=== PATIENT | female | born 1975 | race Caucasian/White ===

== ENCOUNTER → 2018-01-24 | Outpatient (CLI) | payer BC, OTHER ==
[~2018-01-24] MED LIST: ATACAND32 MG PO; BACTRIM DS TAB1 EACH PO; BYSTOLIC10 MG PO; DIFLUCAN150 MG PO; FISH OIL 1,001000 M2 PO; HYDROCODON-ACE1 EAC7 PO; MECLIZINE 25 MG25 M1 PO; MULTIVITAMINS1 EAC7 PO; NORVASC 5 MG TAB5 MG PO; NORVASC10 MG PO; ROBAXIN500 MG PO; VALIUM5 MG PO; VITAMIN D1000 UNI1 PO; ZOFRAN ODT4 MG PO
== END ==
LOC: RAD 14:01
DX: Z12.31 Encounter for screening mammogram for malignant neoplasm of breast (principal)

== ENCOUNTER → 2020-02-07 | Outpatient (CLI) | payer OTHER | LOC: CAT 08:55 | PROVIDERS: ATTEND Family Medicine | DX: Z12.31 Encounter for screening mammogram for malignant neoplasm of breast (principal); Z13.6 Encounter for screening for cardiovascular disorders; I25.10 Atherosclerotic heart disease of native coronary artery without angina pectoris; E78.00 Pure hypercholesterolemia, unspecified ==

== ENCOUNTER → 2020-02-26 | Outpatient (CLI) | payer OTHER | LOC: ULTRA 09:00 | PROVIDERS: ATTEND Family Medicine | DX: N60.02 Solitary cyst of left breast (principal); N63.20 Unspecified lump in the left breast, unspecified quadrant ==

== ENCOUNTER 2020-05-12 15:23 | Emergency (ER) | payer OTHER ==
[~2020-05-12] VITALS: Ht 157.5 cm; Wt 59.0 kg
[2020-05-12 16:22] LABS: BASOPHILS 0.6 % (0.0-2.0); EOSINOPHILS 0.1 % (0.0-3.0); HEMATOCRIT 42.1 % (37.0-47.0); HEMOGLOBIN 14.2 gm/dL (12.0-15.0); LYMPHOCYTES 20.1 % (24.0-44.0); MCH 31.9 pg (26.0-34.0); MCHC 33.8 g/dL (28.0-37.0); MCV 94.2 fL (80.0-100.0); MONOCYTES 4.2 % (1.0-8.0); PLATELET COUNT 381 thou/uL (150-400); RBC 4.47 mil/uL (4.20-5.00); RDW 12.3 % (10.5-14.5); WBC 9.3 thou/uL (4.0-11.0)
[2020-05-12 16:43] VITALS: BP 140/88
[2020-05-12 16:51] LABS: ANION GAP 11 mmol/L (7-16); BUN 9 mg/dL (7-18); CALCIUM 9.3 mg/dL (8.5-10.1); CHLORIDE 99 mmol/L (98-107); CO2 29 mmol/L (21-32); CREATININE 0.8 mg/dL (0.6-1.0); GLUCOSE 95 mg/dL (74-106); POTASSIUM 3.4 mmol/L (3.5-5.1); SODIUM 139 mmol/L (136-145)
[2020-05-12 17:02] LABS: ALBUMIN 4.8 g/dL (3.4-5.0); LIPASE 64 U/L (73-393); SGOT 25 U/L (15-37); SGPT 36 U/L (14-59); TOTAL BILIRUBIN 0.3 mg/dL (0.2-1.0); TOTAL PROTEIN 8.6 g/dL (6.4-8.2); TROPONIN-I <0.06 ng/mL (<0.06)
[2020-05-12] MEDS ORDERED: OMEPRAZOLE40 MG PO (17:44)
[2020-05-12] MEDS ORDERED: ONDANSETRON HCL4 M2 PO (17:44)
[2020-05-12] MEDS ORDERED: CARAFATE 1 GM TA1 G1 PO (17:44)
[2020-05-12] MEDS ORDERED: NORCO5 PO (17:44)
[2020-05-12 17:57] LABS: URINE BILIRUBIN NEGATIVE (Negative); URINE BLOOD NEGATIVE (Negative); URINE CLARITY CLEAR; URINE COLOR YELLOW; URINE GLUCOSE-RANDOM* NEGATIVE (Negative); URINE KETONES NEGATIVE (Negative); URINE LEUKOCYTES-REFLEX NEGATIVE (Negative); URINE NITRITE-REFLEX NEGATIVE (Negative); URINE PROTEIN (DIPSTICK) NEGATIVE (Negative); URINE SPECIFIC GRAVITY 1.015 (1.005-1.035); URINE UROBILINOGEN 0.2 E.U./dl (0.2-1.0)
--- NOTE | 2020-05-13 07:25 | EKG ---
[address] [address] ELECTROCARDIOGRAM REPORT Name: CRISTY VÁSQUEZ Room #: DEP [facility]#: [id number] Admission: 05/12/20 Attend Phys: Discharge: 05/12/20 Date of : 71 Report #: [id number] [facility] Test Date: 2020-05-12 Test Time: 15:45:25 Pat Name: CRISTY VÁSQUEZ Department: Room: Gender: F Patient Resource Coordinator: DEBRA : 1975 Requested By: Rosita Reich Order Number: [id number] MD: Allen Venegas Measurements Intervals [place] Rate: 89 P: 77 [place]: 150 QRS: 68 QRSD: 94 T: 67 QT: 399 QTc: 486 Interpretive Statements Sinus rhythm Probable left atrial enlargement Probable left ventricular hypertrophy Borderline prolonged QT interval Compared to ECG 07/05/2014 06:50:19 Sinus arrhythmia no longer present Electronically Signed On 05-13-2020 7:25:07 CDT by Allen Venegas [email or web address] <ELECTRONICALLY SIGNED> By: Allen Venegas MD, [facility] 05/13/20 0725 1545 1545 Allen Venegas MD, FACC /EPI
== END 2020-05-12 18:13 | disposition home or self-care (01) ==
LOC: ER 15:23
PROVIDERS: Physician Assistant
DX: K29.70 Gastritis, unspecified, without bleeding (principal); R07.9 Chest pain, unspecified; R11.0 Nausea; Z90.49 Acquired absence of other specified parts of digestive tract; Z90.710 Acquired absence of both cervix and uterus; Z90.89 Acquired absence of other organs; Z79.899 Other long term (current) drug therapy; Z88.1 Allergy status to other antibiotic agents; Z88.5 Allergy status to narcotic agent; Z88.8 Allergy status to other drugs, medicaments and biological substances

== ENCOUNTER → 2020-07-16 | Outpatient (CLI) | payer OTHER ==
[~2020-07-16] MED LIST changes: +CARAFATE 1 GM TA1 G1 PO; +NORCO5 PO; +OMEPRAZOLE40 MG PO; +ONDANSETRON HCL4 M2 PO
== END ==
LOC: CAT 15:59
PROVIDERS: ATTEND Nurse Practitioner
DX: N83.202 Unspecified ovarian cyst, left side (principal); N83.201 Unspecified ovarian cyst, right side; Z90.710 Acquired absence of both cervix and uterus